=== PATIENT | male | born 1965 | race African-American/Black ===

== ENCOUNTER 2018-03-11 01:10 | Emergency (ER) | payer SELFPAY ==
[~2018-03-11] VITALS: Ht 180.3 cm; Wt 65.9 kg
[2018-03-11 01:20] VITALS: TEMP 98.7
[2018-03-11] MEDS ORDERED: RT ADVAIR HFA 412 GM IH (01:25)
[2018-03-11] MEDS ORDERED: 00186-0372-20 IH (01:26)
[2018-03-11] MEDS ORDERED: PROAIR HFA0.09 MG/AC IH (01:26)
[2018-03-11 02:41] VITALS: BP 133/89; PULSE 94
== END 2018-03-11 02:41 | disposition home or self-care (01) ==
LOC: COL.ER 01:10
DX: R04.0 Epistaxis (principal); I10 Essential (primary) hypertension; Z87.891 Personal history of nicotine dependence; J45.909 Unspecified asthma, uncomplicated; Z88.6 Allergy status to analgesic agent